=== PATIENT | male | born 1965 | race African-American/Black ===

== ENCOUNTER 2023-01-17 08:05 | Inpatient (IN) | payer OTHER ==
[2023-01-17 09:27] LABS: #Eosinphils 0.1 thou/uL (0.0-0.7); #Monocytes 0.6 thou/uL (0.11-0.59); #Neutrophils 7.4 thou/uL (1.40-6.50); %Basophils 0.3 % (0.0-1.0); %Eosinophils 0.5 % (0.0-10.0); %Lymphocytes 15.3 % (21.0-51.0); %Monocytes 5.8 % (0.0-10.0); %Neutrophils 77.9 % (42.0-75.0); Hematocrit 54.1 % (42.0-52.0); Hemoglobin 17.6 g/dL (14.0-18.0); Mean Corpuscular HGB CONC 32.5 g/dL (32.0-36.0); Mean Corpuscular Hemoglobin 26.3 pg (27.0-31.0); Mean Corpuscular Volume 80.9 fl (78.0-98.0); Mean Platelet Volume 9.1 fL (7.4-10.4); Platelet Count 331 10x3/uL (130-400); RBC Distribution Width 15.9 % (11.5-14.5); Red Blood Cell (RBC) Count 6.69 mill/uL (4.70-6.10); White Blood Cell (WBC) Count 9.5 10x3/uL (4.8-10.8)
[2023-01-17 09:51] LABS: ALT (SGPT) 14 U/L (8-55); AST (SGOT) 23 U/L (5-34); Alkaline Phosphatase 85 U/L (40-110); Anion Gap 14 mmol/L (10-20); BUN (Urea Nitrogen) 14 mg/dL (8.4-25.7); Bilirubin, Total 1.1 mg/dL (0.2-1.2); Calc. Creatinine Clearance 0 mL/min (70-130); Calcium 10.8 mg/dL (7.8-10.44); Carbon Dioxide 25 mmol/L (22-29); Chloride 102 mmol/L (98-107); Estimated GFR 62; Globulin 4.5 g/dL (2.4-3.5); Glucose 95 mg/dL (70-105); Lipase 19 U/L (8-78); Potassium 4.4 mmol/L (3.5-5.1); Protein, Total 9.5 g/dL (6.0-8.3); Sodium 137 mmol/L (136-145)
[2023-01-17 09:54] LABS: Troponin I Less than 0.010 ng/mL (< 0.028)
[2023-01-17 10:01] LABS: SARS-CoV-2 NAA Rapid Test Not Detected (NotDetected)
[2023-01-17 10:58] LABS: Prothrombin Time 13.5 sec (12.0-14.7)
[2023-01-17 10:59] LABS: PTT 29.1 sec (22.9-36.1)
[2023-01-17] MEDS ORDERED: Ondansetron PF 4 MG/2 ML Vial ONE (11:25)
[2023-01-17] MEDS ORDERED: Morphine 2 MG/ML VIAL ONE (11:25)
[2023-01-17] MEDS ORDERED: Carvedilol 25 MG TAB PO SCH (11:30)
[2023-01-17] MEDS ORDERED: Ondansetron PF 4 MG/2 ML Vial IVP PRN (13:40)
[2023-01-17] MEDS ORDERED: Ipratropium/Albuterol 3 ML NEB NEB PRN (13:40)
[2023-01-17 14:12] VITALS: BMI 28.5
[2023-01-17] MEDS ORDERED: Nitroglycerin 0.4 MG TAB (25 Tab Bottle) SL PRN (14:18)
[2023-01-17] MEDS: Sodium Chloride 0.9% 1,000 ML IV SCH ×2 (14:20→22:35)
[2023-01-17] MEDS ORDERED: Simethicone Chewable 80 MG TAB PO PRN (15:00)
[2023-01-17] MEDS: Acetaminophen 325 MG TAB PO PRN (16:00)
[2023-01-17] MEDS: Calcium Carbonate 500 MG TAB PO SCH ×2 (16:00→20:45)
[2023-01-17] MEDS ORDERED: Famotidine/PF 20 mg/2ml Vial SLOW IVP SCH (21:00)
[2023-01-17] MEDS ORDERED: Ziprasidone 20 MG CAP PO SCH (21:00)
[2023-01-17] MEDS ORDERED: Terazosin HCl 1 MG CAP PO SCH (21:00)
[2023-01-17] MEDS ORDERED: Atorvastatin Calcium 40 MG TAB PO SCH (21:00)
[2023-01-17] MEDS ORDERED: Sodium Chloride 0.9% 1,000 ML IV SCH (21:30)
[2023-01-18 05:56] LABS: #Eosinphils 0.2 thou/uL (0.0-0.7); #Monocytes 0.8 thou/uL (0.11-0.59); #Neutrophils 5.4 thou/uL (1.40-6.50); %Basophils 0.4 % (0.0-1.0); %Eosinophils 2.3 % (0.0-10.0); %Lymphocytes 25.3 % (21.0-51.0); %Monocytes 9.5 % (0.0-10.0); %Neutrophils 62.4 % (42.0-75.0); Mean Corpuscular HGB CONC 31.3 g/dL (32.0-36.0); Mean Corpuscular Hemoglobin 26.3 pg (27.0-31.0); Mean Platelet Volume 8.8 fL (7.4-10.4); Platelet Count 276 10x3/uL (130-400); RBC Distribution Width 15.9 % (11.5-14.5); Red Blood Cell (RBC) Count 5.33 mill/uL (4.70-6.10); White Blood Cell (WBC) Count 8.6 10x3/uL (4.8-10.8)
[2023-01-18 06:03] LABS: Hematocrit 44.7 % (42.0-52.0); Mean Corpuscular Volume 83.9 fl (78.0-98.0)
[2023-01-18 06:37] LABS: Anion Gap 11 mmol/L (10-20); BUN (Urea Nitrogen) 13 mg/dL (8.4-25.7); Calc. Creatinine Clearance 86 mL/min (70-130); Carbon Dioxide 23 mmol/L (22-29); Chloride 109 mmol/L (98-107); Estimated GFR 74; Glucose 77 mg/dL (70-105); Potassium 4.4 mmol/L (3.5-5.1); Sodium 139 mmol/L (136-145)
[2023-01-18] MEDS: Calcium Carbonate 500 MG TAB PO SCH ×2 (08:51→14:46)
[2023-01-18] MEDS: Magnesium Citrate 300 ML BOT PO SCH ×2 (08:52→09:00)
[2023-01-18] MEDS: Acetaminophen 325 MG TAB PO PRN (08:56)
[2023-01-18] MEDS ORDERED: Venlafaxine HCl XR 150 MG CAP PO SCH (09:00)
[2023-01-18] MEDS ORDERED: Venlafaxine HCl XR 75 MG CAP PO SCH (09:00)
[2023-01-18 11:39] VITALS: BP 121/76; TEMP 98.2
[2023-01-18] MEDS ORDERED: Ondansetron ODT 4 MG TAB PO PRN (14:39)
== END 2023-01-18 15:25 | disposition home or self-care (01) | DRG 84 ==
LOC: ERS 08:05 → EEVIPCON 13:02 → ERHOLD 13:02 → SURG A 15:38
PROVIDERS: ADMIT Surgery; ATTEND Surgery
DX: S06.5XAA Traumatic subdural hemorrhage with loss of consciousness status unknown, initial encounter (principal); I25.10 Atherosclerotic heart disease of native coronary artery without angina pectoris; I10 Essential (primary) hypertension; E78.5 Hyperlipidemia, unspecified; E11.9 Type 2 diabetes mellitus without complications; K21.9 Gastro-esophageal reflux disease without esophagitis; F43.10 Post-traumatic stress disorder, unspecified; W19.XXXA Unspecified fall, initial encounter; K59.00 Constipation, unspecified; Z20.822 Contact with and (suspected) exposure to COVID-19; Z98.890 Other specified postprocedural states; Z95.5 Presence of coronary angioplasty implant and graft; Z88.8 Allergy status to other drugs, medicaments and biological substances; Y92.142 Bathroom in prison as the place of occurrence of the external cause
CPT/HCPCS: 36415; 36416; 70450; 71045; 72125; 74177; 80048; 80053; 83690; 84484; 85025; 85610; 85730; 93005; 96374; 96375; G0390; J2272; J2405; J7050

== ENCOUNTER 2023-10-24 17:47 | Emergency (ER) | payer OTHER ==
[2023-10-24 18:42] LABS: #Basophils Less than 0.03 10x3/uL (0.0-0.2); %Basophils 0.1 % (0.0-1.0); %Eosinophils 0.8 % (0.0-10.0); %Lymphocytes 17.9 % (21.0-51.0); %Monocytes 6.9 % (0.0-10.0); %Neutrophils 74.2 % (42.0-75.0); Hematocrit 41.1 % (42.0-52.0); Hemoglobin 13.1 g/dL (14.0-18.0); Mean Corpuscular HGB CONC 31.9 g/dL (32.0-36.0); Mean Corpuscular Hemoglobin 27.3 pg (27.0-31.0); Mean Corpuscular Volume 85.8 fL (78.0-98.0); Mean Platelet Volume 8.7 fL (7.4-10.4); Platelet Count 234 10x3/uL (130-400); RBC Distribution Width 13.9 % (11.5-14.5); Red Blood Cell (RBC) Count 4.79 mill/uL (4.70-6.10)
[2023-10-24 18:56] LABS: ALT (SGPT) 13 U/L (8-55); AST (SGOT) 18 U/L (5-34); Albumin 3.8 g/dL (3.5-5.0); Alkaline Phosphatase 60 U/L (40-110); Anion Gap 11 mmol/L (10-20); BUN (Urea Nitrogen) 18 mg/dL (8.4-25.7); Bilirubin, Total 0.7 mg/dL (0.2-1.2); Calc. Creatinine Clearance 0 mL/min (70-130); Calcium 9.3 mg/dL (7.8-10.44); Carbon Dioxide 27 mmol/L (22-29); Chloride 107 mmol/L (98-107); Estimated GFR 78; Globulin 3.1 g/dL (2.4-3.5); Glucose 135 mg/dL (70-105); Potassium 4.6 mmol/L (3.5-5.1); Protein, Total 6.9 g/dL (6.0-8.3); Sodium 140 mmol/L (136-145)
[2023-10-24 18:58] LABS: INR-International Normal Ratio 1.1; PTT 28.4 sec (22.9-36.1); Prothrombin Time 13.8 sec (12.0-14.7)
[2023-10-24 19:01] LABS: Troponin I Less than 0.010 ng/mL (< 0.028)
== END 2023-10-24 21:45 ==
LOC: EEVIPCON 17:47 → ERS 17:47
DX: S06.0X0A Concussion without loss of consciousness, initial encounter (principal); I25.10 Atherosclerotic heart disease of native coronary artery without angina pectoris; I10 Essential (primary) hypertension; E11.9 Type 2 diabetes mellitus without complications; E78.5 Hyperlipidemia, unspecified; Y04.0XXA Assault by unarmed brawl or fight, initial encounter; Z79.82 Long term (current) use of aspirin; Z79.84 Long term (current) use of oral hypoglycemic drugs; Z79.4 Long term (current) use of insulin; Z79.899 Other long term (current) drug therapy
CPT/HCPCS: 36415; 70450; 70486; 70496; 70498; 71045; 72127; 80053; 84484; 85025; 85610; 85730; 93005

== ENCOUNTER 2024-07-03 15:50 | Emergency (ER) | payer OTHER ==
[2024-07-03] MEDS ORDERED: Sucralfate 1 GM/10 ML UDCUP ONE (19:17)
[2024-07-03] MEDS ORDERED: Acetaminophen 500 MG TAB ONE (19:17)
[2024-07-03] MEDS ORDERED: Pantoprazole 40 MG VIAL ONE (19:17)
[2024-07-03 19:53] LABS: #Basophils Less than 0.03 10x3/uL (0.0-0.2); %Basophils 0.2 % (0.0-1.0); %Eosinophils 3.9 % (0.0-10.0); %Lymphocytes 41.8 % (21.0-51.0); %Monocytes 13.6 % (0.0-10.0); %Neutrophils 40.3 % (42.0-75.0); Hemoglobin 13.7 g/dL (14.0-18.0); Mean Corpuscular HGB CONC 31.9 g/dL (32.0-36.0); Mean Corpuscular Hemoglobin 26.1 pg (27.0-31.0); Mean Corpuscular Volume 82.1 fL (78.0-98.0); Mean Platelet Volume 8.8 fL (7.4-10.4); Platelet Count 217 10x3/uL (130-400); RBC Distribution Width 14.8 % (11.5-14.5); Red Blood Cell (RBC) Count 5.24 mill/uL (4.70-6.10)
[2024-07-03 20:12] LABS: ALT (SGPT) 18 U/L (Less than 45); AST (SGOT) 30 U/L (11-34); Albumin 3.9 g/dL (3.1-4.5); Alkaline Phosphatase 73 U/L (40-110); Anion Gap 13 mmol/L (10-20); BUN (Urea Nitrogen) 18 mg/dL (8.4-25.7); Bilirubin, Total 0.5 mg/dL (0.3-1.2); Calc. Creatinine Clearance 0 mL/min (70-130); Calcium 9.1 mg/dL (7.8-10.44); Carbon Dioxide 21 mmol/L (22-29); Chloride 109 mmol/L (98-107); Estimated GFR 95; Glucose 81 mg/dL (70-105); Lipase 23 U/L (8-78); Potassium 4.4 mmol/L (3.5-5.1); Protein, Total 7.9 g/dL (6.0-8.3); Sodium 139 mmol/L (136-145)
[2024-07-03 20:14] LABS: Troponin I Less than 0.010 ng/mL (< 0.028)
== END 2024-07-03 21:02 ==
LOC: ERS 15:50
DX: I88.0 Nonspecific mesenteric lymphadenitis (principal); K59.00 Constipation, unspecified; I25.10 Atherosclerotic heart disease of native coronary artery without angina pectoris; I10 Essential (primary) hypertension; E11.9 Type 2 diabetes mellitus without complications
CPT/HCPCS: 36415; 74177; 80053; 83690; 84484; 85025; 93005; 96374; J2470